=== PATIENT | male | born 1965 | race Hispanic/Latino ===

== ENCOUNTER 2016-08-05 07:45 | Emergency (ER) | payer MEDICAID ==
[2016-08-05 07:57] VITALS: BP 142/91; PULSE 78; RESP 18; TEMP 97.3; O2SAT 99; BMI 35.9
--- NOTE | 2016-08-05 09:00 | ED PDOC ---
Lower Extremity Pain/Injury Time Seen by Provider: 08/05/16 08:04 Chief Complaint (Nursing): Abnormal Skin Integrity Chief Complaint (Provider): left leg pain and swelling History Per: Patient History/Exam Limitations: no limitations Onset/Duration Of Symptoms: Days (2), Gradual Current Symptoms Are (Timing): Still Present Additional Complaint(s): 51yo male states history of psychiatric problems, presents c/o left leg pain, swelling and open wound to left 5th toe (states "rubs against my sneaker"). States legs will sometimes swell but swelling on left leg is new and out of proportion to normal symptoms. Denies fall or injury. Denies fever or hip pain. Past Medical History Reviewed: Historical Data, Nursing Documentation, Vital Signs Vital Signs: Last Vital Signs Temp 97.3 F L 08/05/16 07:57 Pulse 78 08/05/16 07:57 Resp 18 08/05/16 07:57 BP 142/91 H 08/05/16 07:57 Pulse Ox 99 08/05/16 07:57 - Medical History PMH: Anemia, Anxiety, Asthma, Bipolar Disorder, Depression, Fractures (Right arm ), Hyperthyroidism, Hypothyroidism, Personality Disorder, Post Traumatic Stress Disorder, Schizophrenia (schizo-affective) Denies: Diabetes, Hepatitis, HIV, HTN, Chronic Kidney Disease, Seizures, Sexually Transmitted Disease - Family History Family History: States: Unknown Family Hx, Hypertension (sister) - Social History Current smoker - smoking cessation education provided: No Alcohol: Occasional - Home Medications Home Medications: Ambulatory Orders Medication Instructions Recorded Multimineral/Multivitamin 1 tab PO DAILY #30 tab 07/29/16 [Therapeutic-M Tab] Cyanocobalamin [Vitamin B12 1000 1,000 mcg PO DAILY 08/10/16 mcg Tab] Albuterol HFA [Ventolin HFA 90 2 puff IH Q4H PRN #1 inhaler 08/17/16 mcg/actuation (8 g)] Divalproex [Depakote DR (*BID*)] 250 mg PO DAILY #30 ect 08/17/16 Divalproex [Depakote DR(*BID*)] 1,000 mg PO HS #60 tcp 08/17/16 Doxepin [Sinequan] 10 mg PO HS #30 cap 08/17/16 Ferrous Sulfate [Feosol] 325 mg PO BID #60 tab 08/17/16 Fluticasone/Salmeterol 250/50 1 puff IH Q12 #1 inhaler 08/17/16 [Advair Diskus 250/50] Levothyroxine [Synthroid] 75 mcg PO DAILY #30 tab 08/17/16 QUEtiapine [SEROquel] 300 mg PO HS #30 tab 08/17/16 QUEtiapine [Seroquel] 100 mg PO BID #30 tab 08/17/16 amLODIPine [Norvasc] 5 mg PO DAILY #30 tab 08/17/16 - Allergies Allergies/Adverse Reactions: Allergies Allergy/AdvReac Type Severity Reaction Status Date / Time meperidine Allergy FATIGUE Verified 08/10/16 12:53 meperidine HCl [From Demerol] Allergy ANXIETY Verified 08/10/16 12:53 Review of Systems ROS Statement: Except As Marked, All Systems Reviewed And Found Negative Constitutional: Negative for: Fever, Chills Cardiovascular: Negative for: Chest Pain, Palpitations Respiratory: Negative for: Cough, Shortness of Breath Gastrointestinal: Negative for: Nausea, Vomiting, Abdominal Pain, Diarrhea Genitourinary Male: Negative for: Frequency Musculoskeletal: Positive for: Leg Pain, Foot Pain. Negative for: Neck Pain, Shoulder Pain, Back Pain Skin: Positive for: Lesions. Negative for: Rash, Jaundice Neurological: Negative for: Weakness, Numbness, Headache, Dizziness Psych: Positive for: Anxiety. Negative for: Depression Physical Exam - Reviewed Nursing Documentation Reviewed: Yes Vital Signs Reviewed: Yes - Physical Exam Appears: Positive for: Well, Non-toxic, No Acute Distress Head Exam: Positive for: ATRAUMATIC, NORMAL INSPECTION, NORMOCEPHALIC Skin: Positive for: Normal Color, Warm, DRY Eye Exam: Positive for: EOMI, Normal appearance, PERRL ENT: Positive for: Normal ENT Inspection Neck: Positive for: Normal, Painless ROM Cardiovascular/Chest: Positive for: Regular Rate, Rhythm Respiratory: Positive for: CNT, Normal Breath Sounds Gastrointestinal/Abdominal: Positive for: Normal Exam, Bowel Sounds, Soft Back: Positive for: Normal Inspection Extremity: Positive for: Tenderness (L leg), Swelling (L leg++ edema, small abrasion L 5th toe, mild erythema to foot/ankle/lower leg. ) Neurologic/Psych: Positive for: Alert, Oriented - Laboratory Results Result Diagrams: 08/05/16 09:58 08/05/16 09:58 - ECG O2 Sat by Pulse Oximetry: 99 Pulse Ox Interpretation: Normal - Radiology X-Ray: Read By Radiologist X-Ray Interpretation: Other (neg fracture) - CT Scan/US US duplex LE Other Rad Studies (CT/US): Read By Radiologist Other Rad Interpretation: neg for DVT Medical Decision Making Medical Decision Making: Workup initiated for unilateral edema/ pain r/o DVT vs cellulitis vs occult trauma vs ischemia vs other. labs unremarkable clinically podiatry consult performed in ED, wound care provided and dressing placed. followup in pod clinic 3-5 days. Disposition - Clinical Impression Clinical Impression: Cellulitis, Leg edema, left - Patient ED Disposition Is Patient to be Admitted: No Counseled Patient/Family Regarding: Studies Performed, Diagnosis, Need For Followup, Rx Given - Disposition Referrals: Podiatry Clinic [Outside] Disposition: Routine/Home Disposition Time: 12:06 Condition: STABLE Additional Instructions: See clinic for re-evaluation as directed. Return to ER for any worse or new symptoms, fever, or any concern. Take antibiotic as directed. Instructions: Cellulitis (ED), Leg Edema (ED)
[2016-08-05 10:03] LABS: BASO # 0.1 K/uL (0.0-0.2); EOS # 0.4 K/uL (0.0-0.7); EOS % 6.7 % (0.0-4.0); HEMATOCRIT 34.3 % (35.0-51.0); LYMPH # 1.4 K/uL (1.0-4.3); LYMPH % 26.5 % (20.0-40.0); MEAN CELL VOLUME 82.3 fl (80.0-94.0); MEAN CORPUSCULAR HEMOGLOBIN 26.9 pg (27.0-31.0); MEAN CORPUSCULAR HGB CONC 32.7 g/dL (33.0-37.0); MEAN PLATELET VOLUME 7.5 fl (7.2-11.7); MONO # 0.7 K/uL (0.0-0.8); MONO % 12.9 % (0.0-10.0); NEUT # 2.9 K/uL (1.8-7.0); NEUT % 52.9 % (50.0-75.0); NRBC % 0.1 % (0.0-0.0); RED CELL DISTRIBUTION WIDTH 18.1 % (11.5-14.5); WHITE BLOOD COUNT 5.4 K/uL (4.8-10.8)
[2016-08-05 10:21] LABS: ALB/GLOB RATIO 1.1 (1.0-2.1); ALKALINE PHOSPHATASE 85 U/L (38-126); ALT/SGPT 27 U/L (21-72); AST/SGOT 33 U/L (17-59); BILIRUBIN,TOTAL 0.6 mg/dl (0.2-1.3); BLOOD UREA NITROGEN 9 mg/dl (9-20); CALCIUM 9.1 mg/dL (8.4-10.2); CARBON DIOXIDE 23 mmol/L (22-30); CHLORIDE 108 mmol/L (98-107); GFR AFRICAN-AMERICAN > 60; GLUCOSE,RANDOM 79 mg/dL (75-110); POTASSIUM 4.8 MMOL/L (3.6-5.0); SODIUM 146 mmol/l (132-148); TOTAL PROTEIN 7.2 G/DL (6.3-8.2)
[2016-08-05 10:32] LABS: RBC URINE 1 /hpf (0-3); URINE BILIRUBIN NEGATIVE (NEGATIVE); URINE BLOOD NEGATIVE (NEGATIVE); URINE COLOR STRAW (YELLOW); URINE GLUCOSE (UA) NEG (Normal); URINE KETONE NEGATIVE (NEGATIVE); URINE LEUKOCYTE ESTERASE NEG Leu/uL (Negative); URINE PROTEIN NEGATIVE (NEGATIVE); URINE UROBILINOGEN 0.2-1.0 mg/dL (0.2-1.0); WBC URINE < 1 /hpf (0-5)
--- NOTE | 2016-08-05 11:08 | US ---
HISTORY: ro DVT, edema pain . PRIORS: None. FINDINGS: 2-D, color and duplex Doppler analysis of the lower extremity venous circulation using routine protocol from the femoral veins through the popliteal veins. Venous compressibility: Normal. Flow and augmentation patterns: Normal. Visualized veins upper third of calf: Normal. Reece cyst: None. Incidental 2.2 cm left inguinal lymph node identified. Subcutaneous edema noted in calf and about ankle. IMPRESSION: No sonographic or Doppler evidence for DVT in left lower extremity. Subcutaneous edema in left calf and ankle.
[2016-08-05] MEDS ORDERED: Amoxicillin-Clav 875-125 mg Tab PO STA (11:36)
[2016-08-05] MEDS ORDERED: Amoxicillin-Clav 875-125 mg Tab PO ONE (11:41)
[2016-08-05 12:07] LABS: PARTIAL THROMBOPLASTIN TIME 26.6 SECONDS (23.3-32.5)
--- NOTE | 2016-08-05 13:20 | RAD ---
PROCEDURE: Left Foot Radiographs. HISTORY: pain swelling COMPARISON: None. FINDINGS: BONES: Normal. No fracture. JOINTS: Hallux valgus deformity. SOFT TISSUES: Normal. OTHER FINDINGS: None. IMPRESSION: No acute fracture. Hallux valgus noted. Otherwise unremarkable.
--- NOTE | 2016-08-05 13:23 | RAD ---
PROCEDURE: Left Ankle Radiographs. HISTORY: pain swelling COMPARISON: None FINDINGS: BONES: Normal. No fracture. JOINTS: Normal. No osteoarthritis. Ankle mortise maintained. Talar dome intact SOFT TISSUES: Extensive soft tissue swelling about the CT and ankle. OTHER FINDINGS: None. IMPRESSION: No fracture. Soft tissue swelling noted.
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
== END 2016-08-05 12:55 | disposition home or self-care (01) ==
LOC: H.ER 07:45
DX: M25.572 Pain in left ankle and joints of left foot (principal); R60.0 Localized edema; D64.9 Anemia, unspecified

== ENCOUNTER 2016-10-11 04:24 | Emergency (ER) | payer MEDICAID ==
[2016-10-11 04:25] VITALS: BMI 35.9
[2016-10-11 04:40] VITALS: BP 156/81; PULSE 79; RESP 16; TEMP 98.4; O2SAT 97
[2016-10-11 05:42] LABS: BASO # 0.1 K/uL (0.0-0.2); BASO % 1.4 % (0.0-2.0); EOS # 0.2 K/uL (0.0-0.7); EOS % 4.2 % (0.0-4.0); HEMATOCRIT 36.3 % (35.0-51.0); LYMPH # 1.7 K/uL (1.0-4.3); LYMPH % 29.6 % (20.0-40.0); MEAN CELL VOLUME 84.1 fl (80.0-94.0); MEAN CORPUSCULAR HEMOGLOBIN 27.4 pg (27.0-31.0); MEAN CORPUSCULAR HGB CONC 32.6 g/dL (33.0-37.0); MEAN PLATELET VOLUME 7.6 fl (7.2-11.7); MONO # 0.7 K/uL (0.0-0.8); MONO % 12.4 % (0.0-10.0); NEUT % 52.4 % (50.0-75.0); NRBC % 0.1 % (0.0-0.0); RED CELL DISTRIBUTION WIDTH 15.8 % (11.5-14.5); WHITE BLOOD COUNT 5.7 K/uL (4.8-10.8)
[2016-10-11 05:56] LABS: ALCOHOL SERUM < 10 mg/dl (0-10); BLOOD UREA NITROGEN 10 mg/dl (9-20); CALCIUM 9.2 mg/dL (8.4-10.2); CARBON DIOXIDE 27 mmol/L (22-30); CHLORIDE 105 mmol/L (98-107); GFR AFRICAN-AMERICAN > 60; GLUCOSE,RANDOM 84 mg/dL (75-110); POTASSIUM 3.9 MMOL/L (3.6-5.0); SODIUM 140 mmol/l (132-148)
--- NOTE | 2016-10-11 06:06 | ED PDOC ---
- Laboratory Results Result Diagrams: 10/11/16 05:10 - ECG O2 Sat by Pulse Oximetry: 97 (RA) Pulse Ox Interpretation: Normal Medical Decision Making Medical Decision Making: Time: 0430 Initial impression: Anxiety Initial plan: --Acetaminophen --Alcohol Serum --BMP --Drug Screen, Urine --Salicylate --Crisis Evaluation --Urinalysis 0600: Cleared by crisis for discharge Scribe Attestation: Documented by Katlyn Contreras, acting as a scribe for Nelson Andres M.D. MD Scribe Attestation: All medical record entries made by the Scribe were at my direction and personally dictated by me. I have reviewed the chart and agree that the record accurately reflects my personal performance of the history, physical exam, medical decision making, and the department course for this patient. I have also personally directed, reviewed, and agree with the discharge instructions and disposition. Disposition - Clinical Impression Clinical Impression: Anxiety - Disposition Referrals: Nessa Bills MD [Primary Care Provider] - Disposition: Routine/Home - PA / [employer] / Resident Statement / has reviewed & agrees with the documentation as recorded.
--- NOTE | 2016-10-11 06:13 | ED PDOC ---
HPI: General Adult Time Seen by Provider: 10/11/16 04:26 Chief Complaint (Nursing): Anxiety Chief Complaint (Provider): Anxiety History Per: Patient History/Exam Limitations: no limitations Onset/Duration Of Symptoms: Days Have you had recent travel within the past 21 days to any of the following countries: [place], [place], [place] or [place]?: No Severity: Mild Additional Complaint(s): 51 y/o male presenting to the ED with anxiety. Pt states that he suffers from depression as well and has ran out of medications. PT reports "hearing voices" in his head. And he also mentions that he has been suffering numbness in his right upper extremity for a week now. Past Medical History Reviewed: Historical Data, Nursing Documentation, Vital Signs Vital Signs: Last Vital Signs Temp 98.4 F 10/11/16 04:34 Pulse 79 10/11/16 04:34 Resp 16 10/11/16 04:34 BP 156/81 H 10/11/16 04:34 Pulse Ox 97 10/11/16 06:50 - Medical History PMH: Anemia, Anxiety, Asthma, Bipolar Disorder, Depression, Fractures (Right arm ), Hyperthyroidism, Hypothyroidism, Personality Disorder, Post Traumatic Stress Disorder, Schizophrenia (schizo-affective) Denies: Diabetes, Hepatitis, HIV, HTN, Chronic Kidney Disease, Seizures, Sexually Transmitted Disease - Family History Family History: States: Unknown Family Hx, Hypertension (sister) - Home Medications Home Medications: Ambulatory Orders Medication Instructions Recorded Multimineral/Multivitamin 1 tab PO DAILY #30 tab 07/29/16 [Therapeutic-M Tab] Cyanocobalamin [Vitamin B12 1000 1,000 mcg PO DAILY 08/10/16 mcg Tab] Albuterol HFA [Ventolin HFA 90 2 puff IH Q4H PRN #1 inhaler 08/17/16 mcg/actuation (8 g)] Divalproex [Depakote DR (*BID*)] 250 mg PO DAILY #30 ect 08/17/16 Divalproex [Depakote DR(*BID*)] 1,000 mg PO HS #60 tcp 08/17/16 Doxepin [Sinequan] 10 mg PO HS #30 cap 08/17/16 Ferrous Sulfate [Feosol] 325 mg PO BID #60 tab 08/17/16 Fluticasone/Salmeterol 250/50 1 puff IH Q12 #1 inhaler 08/17/16 [Advair Diskus 250/50] Levothyroxine [Synthroid] 75 mcg PO DAILY #30 tab 08/17/16 QUEtiapine [SEROquel] 300 mg PO HS #30 tab 08/17/16 QUEtiapine [Seroquel] 100 mg PO BID #30 tab 08/17/16 amLODIPine [Norvasc] 5 mg PO DAILY #30 tab 08/17/16 - Allergies Allergies/Adverse Reactions: Allergies Allergy/AdvReac Type Severity Reaction Status Date / Time meperidine Allergy FATIGUE Verified 08/10/16 12:53 meperidine HCl [From Demerol] Allergy ANXIETY Verified 08/10/16 12:53 Review of Systems ROS Statement: Except As Marked, All Systems Reviewed And Found Negative Constitutional: Negative for: Fever, Chills, Weakness Cardiovascular: Negative for: Chest Pain, Palpitations Respiratory: Negative for: Shortness of Breath Gastrointestinal: Negative for: Nausea, Vomiting, Diarrhea Musculoskeletal: Positive for: Other ((+)right upper extremity numbness) Psych: Positive for: Anxiety, Depression Physical Exam - Reviewed Nursing Documentation Reviewed: Yes Vital Signs Reviewed: Yes - Physical Exam Appears: Positive for: Non-toxic, No Acute Distress Head Exam: Positive for: ATRAUMATIC, NORMAL INSPECTION, NORMOCEPHALIC Skin: Positive for: Normal Color, Warm Eye Exam: Positive for: Normal appearance, EOMI, PERRL Neck: Positive for: Normal, Painless ROM, Supple Cardiovascular/Chest: Positive for: Regular Rate, Rhythm. Negative for: Murmur Respiratory: Positive for: Normal Breath Sounds. Negative for: Respiratory Distress Extremity: Positive for: Normal ROM Neurologic/Psych: Positive for: Alert, Oriented. Negative for: Motor/Sensory Deficits - Laboratory Results Result Diagrams: 10/11/16 05:10 10/11/16 05:10 - ECG O2 Sat by Pulse Oximetry: 97 (RA) Pulse Ox Interpretation: Normal Medical Decision Making Medical Decision Making: Time: 043 Initial impression: Anxiety Initial plan: --Acetaminophen --Alcohol Serum --BMP --Drug Screen, Urine --Salicylate --Crisis Evaluation --Urinalysis 0600: Cleared by crisis for discharge Scribe Attestation: Documented by Katlyn Contreras, acting as a scribe for Nelsno Andres M.D. MD Scribe Attestation: All medical record entries made by the Scribe were at my direction and personally dictated by me. I have reviewed the chart and agree that the record accurately reflects my personal performance of the history, physical exam, medical decision making, and the department course for this patient. I have also personally directed, reviewed, and agree with the discharge instructions and disposition. Disposition - Clinical Impression Clinical Impression: Anxiety - Patient ED Disposition Is Patient to be Admitted: No - Disposition Referrals: Nessa Bills MD [Primary Care Provider] - Disposition: Routine/Home Disposition Time: 06:30 Condition: STABLE Instructions: Anxiety (ED), Suicide Prevention for Adults (ED)
[2016-10-11 07:07] LABS: RBC URINE 2 /hpf (0-3); URINE BILIRUBIN NEGATIVE (NEGATIVE); URINE BLOOD NEGATIVE (NEGATIVE); URINE COLOR YELLOW (YELLOW); URINE GLUCOSE (UA) NEG (Normal); URINE KETONE NEGATIVE (NEGATIVE); URINE LEUKOCYTE ESTERASE NEG Leu/uL (Negative); URINE PROTEIN NEGATIVE (NEGATIVE); URINE UROBILINOGEN 0.2-1.0 mg/dL (0.2-1.0)
== END 2016-10-11 07:14 | disposition home or self-care (01) ==
LOC: H.ER 04:24
DX: F41.9 Anxiety disorder, unspecified (principal); E03.9 Hypothyroidism, unspecified; E05.90 Thyrotoxicosis, unspecified without thyrotoxic crisis or storm; F20.9 Schizophrenia, unspecified; F31.9 Bipolar disorder, unspecified; F43.10 Post-traumatic stress disorder, unspecified; J45.909 Unspecified asthma, uncomplicated

== ENCOUNTER 2016-10-26 16:18 | Inpatient (IN) | payer MEDICAID ==
[2016-10-26 16:18] VITALS: BMI 35.9
[2016-10-26 17:45] LABS: BASO # 0.1 K/uL (0.0-0.2); BASO % 0.9 % (0.0-2.0); EOS # 0.2 K/uL (0.0-0.7); EOS % 2.8 % (0.0-4.0); HEMATOCRIT 36.5 % (35.0-51.0); LYMPH # 1.6 K/uL (1.0-4.3); LYMPH % 26.1 % (20.0-40.0); MEAN CELL VOLUME 84.6 fl (80.0-94.0); MEAN CORPUSCULAR HEMOGLOBIN 27.2 pg (27.0-31.0); MEAN CORPUSCULAR HGB CONC 32.1 g/dL (33.0-37.0); MEAN PLATELET VOLUME 7.5 fl (7.2-11.7); MONO # 0.6 K/uL (0.0-0.8); MONO % 9.3 % (0.0-10.0); NEUT # 3.6 K/uL (1.8-7.0); NEUT % 60.9 % (50.0-75.0); RED CELL DISTRIBUTION WIDTH 15.7 % (11.5-14.5)
--- NOTE | 2016-10-26 17:56 | ED PDOC ---
HPI: Psych/Substance Abuse Time Seen by Provider: 10/26/16 16:43 Chief Complaint (Nursing): Psychiatric Evaluation Chief Complaint (Provider): Psychiatric Evaluation History Per: Patient History/Exam Limitations: no limitations Onset/Duration Of Symptoms: Days (worsen in the last 2 weeks) Current Symptoms Are (Timing): Still Present Additional Complaint(s): Mau Marrufo is a 51 year old male with a previous history of depression, who presents to the emergency department for a psychiatric evaluation for depression associated with suicidal ideation that has worsen in the last 2 weeks. Denies any physical complaints. 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 Stated he "wanted to go the park to hang himself". He was admitted 8 months ago at [facility] for similiar symptoms. PMD: none Past Medical History Reviewed: Historical Data, Nursing Documentation, Vital Signs Vital Signs: Last Vital Signs Temp 98.3 F 10/26/16 16:19 Pulse 77 10/26/16 16:19 Resp 18 10/26/16 16:19 BP 146/88 10/26/16 16:19 Pulse Ox 100 10/26/16 16:19 - Medical History PMH: Anemia, Anxiety, Asthma, Bipolar Disorder, Depression, Fractures (Right arm ), HTN, Hyperthyroidism, Hypothyroidism, Personality Disorder, Post Traumatic Stress Disorder, Schizophrenia (schizo-affective) Denies: Diabetes, Hepatitis, HIV, Chronic Kidney Disease, Seizures, Sexually Transmitted Disease - Surgical History Other surgeries: Gastric Bypass - Family History Family History: States: Unknown Family Hx, Hypertension (sister) - Living Arrangements Living Arrangements: Other (senior living) - Social History Ex-Smoker (has not smoked in the last 12 months): No Alcohol: Occasional (last drink was 6 weeks ago) Drugs: Denies - Home Medications Home Medications: Ambulatory Orders Medication Instructions Recorded Multimineral/Multivitamin 1 tab PO DAILY #30 tab 07/29/16 [Therapeutic-M Tab] Cyanocobalamin [Vitamin B12 1000 1,000 mcg PO DAILY 08/10/16 mcg Tab] Albuterol HFA [Ventolin HFA 90 2 puff IH Q4H PRN #1 inhaler 08/17/16 mcg/actuation (8 g)] Divalproex [Depakote DR (*BID*)] 250 mg PO DAILY #30 ect 08/17/16 Divalproex [Depakote DR(*BID*)] 1,000 mg PO HS #60 tcp 08/17/16 Doxepin [Sinequan] 10 mg PO HS #30 cap 08/17/16 Ferrous Sulfate [Feosol] 325 mg PO BID #60 tab 08/17/16 Fluticasone/Salmeterol 250/50 1 puff IH Q12 #1 inhaler 08/17/16 [Advair Diskus 250/50] Levothyroxine [Synthroid] 75 mcg PO DAILY #30 tab 08/17/16 QUEtiapine [SEROquel] 300 mg PO HS #30 tab 08/17/16 QUEtiapine [Seroquel] 100 mg PO BID #30 tab 08/17/16 amLODIPine [Norvasc] 5 mg PO DAILY #30 tab 08/17/16 - Allergies Allergies/Adverse Reactions: Allergies Allergy/AdvReac Type Severity Reaction Status Date / Time meperidine Allergy FATIGUE Verified 08/10/16 12:53 meperidine HCl [From Demerol] Allergy ANXIETY Verified 08/10/16 12:53 Review of Systems ROS Statement: Except As Marked, All Systems Reviewed And Found Negative Constitutional: Negative for: Fever, Chills, Other (physical complaints) Psych: Positive for: Depression, Suicidal ideation Physical Exam - Reviewed Nursing Documentation Reviewed: Yes Vital Signs Reviewed: Yes - Physical Exam Appears: Positive for: Well, Non-toxic, No Acute Distress Head Exam: Positive for: ATRAUMATIC, NORMAL INSPECTION, NORMOCEPHALIC Skin: Positive for: Normal Color, Warm, DRY Neck: Positive for: Normal, Painless ROM, Supple. Negative for: Limited ROM Cardiovascular/Chest: Positive for: Regular Rate, Rhythm Respiratory: Positive for: Normal Breath Sounds. Negative for: Respiratory Distress Gastrointestinal/Abdominal: Positive for: Normal Exam, Bowel Sounds, Soft. Negative for: Tenderness Extremity: Positive for: Normal ROM, Pedal Edema (trace edema bilaterally) Neurologic/Psych: Positive for: Alert (cooperative), Oriented - Laboratory Results Result Diagrams: 10/26/16 17:35 10/26/16 17:35 - ECG O2 Sat by Pulse Oximetry: 100 (RA) Pulse Ox Interpretation: Normal Medical Decision Making Medical Decision Making: Initial Impression: Depression associated with suicidal ideation Initial Plan: * Acetaminophen * Alcohol serum * Labs * Drug screen * Salicylate * Crisis eval * urinalysis * Reevaluate ~ Scribe Attestation: Documented by Leatha Hare, acting as a scribe for Emily Cotto MD. Provider Scribe Attestation: All medical record entries made by the Scribe were at my direction and personally dictated by me. I have reviewed the chart and agree that the record accurately reflects my personal performance of the history, physical exam, medical decision making, and the department course for this patient. I have also personally directed, reviewed, and agree with the discharge instructions and disposition. Disposition - Clinical Impression Clinical Impression: Suicidal ideation, Depression - Patient ED Disposition Is Patient to be Admitted: Yes Doctor Will See Patient In The: Hospital - Disposition Disposition: Transfer of Care Disposition Time: 18:30 Condition: GUARDED - Pt Status Changed To: Hospital Disposition Of: Inpatient - Admit Certification Admit to Inpatient:: After my assessment, the patient will require hospitalization for at least two midnights. This is because of the severity of symptoms shown, intensity of services needed, and/or the medical risk in this patient being treated as an outpatient. - POA Present On Arrival: None
[2016-10-26 18:08] LABS: ALCOHOL SERUM < 10 mg/dl (0-10); BLOOD UREA NITROGEN 13 mg/dl (9-20); CALCIUM 9.2 mg/dL (8.4-10.2); CARBON DIOXIDE 23 mmol/L (22-30); CHLORIDE 105 mmol/L (98-107); GFR AFRICAN-AMERICAN > 60; GLUCOSE,RANDOM 137 mg/dL (75-110); SODIUM 141 mmol/l (132-148)
[2016-10-26 18:41] LABS: RBC URINE 1 /hpf (0-3); URINE BACTERIA RARE (<OCC); URINE BILIRUBIN NEGATIVE (NEGATIVE); URINE BLOOD NEGATIVE (NEGATIVE); URINE COLOR YELLOW (YELLOW); URINE GLUCOSE (UA) NEG (Normal); URINE KETONE TRACE mg/dL (NEGATIVE); URINE LEUKOCYTE ESTERASE NEG Leu/uL (Negative); URINE PROTEIN 30 mg/dL (NEGATIVE); URINE UROBILINOGEN 0.2-1.0 mg/dL (0.2-1.0); WBC URINE 2 /hpf (0-5)
[2016-10-26 18:42] LABS: URINE CALCIUM OXALATE CRYSTALS FEW /hpf (<OCC)
[2016-10-26] MEDS ORDERED: DiphenhydrAMINE 50 mg/ml Inj IM PRN (23:48)
[2016-10-26] MEDS ORDERED: Magnesium Hydroxide Susp 30 ml UD PO PRN (23:48)
[2016-10-26] MEDS ORDERED: Alum-Mag Hydrox-Simethicone Susp (30 mL) PO PRN (23:48)
[2016-10-27] MEDS: Levothyroxine 75 MCG TAB PO SCH (06:32)
[2016-10-27 09:25] LABS: T4 5.93 ug/dl (5.5-11.0)
[2016-10-27 09:39] LABS: THYROID STIMULATING HORMONE 1.56 mIU/ML (0.46-4.68)
--- NOTE | 2016-10-27 12:28 | RAD ---
HISTORY: for medical clearance COMPARISON: Chest x-ray performed 08/10/16 TECHNIQUE: Chest, one view. FINDINGS: Examination limited by habitus and hypoinflation. The patient's chin obscures evaluation of the lung apices. LUNGS: No focal consolidation. Please note that chest x-ray has limited sensitivity for the detection of pulmonary masses. PLEURA: No significant pleural effusion identified. No definite pneumothorax . CARDIOVASCULAR: Heart size appears within normal limits. OSSEOUS STRUCTURES: Degenerative changes. VISUALIZED UPPER ABDOMEN: Unremarkable. OTHER FINDINGS: None. IMPRESSION: No focal consolidation, significant pleural effusion, or definite pneumothorax identified.
--- NOTE | 2016-10-27 13:17 | PCM.PSYCH ---
Initial Psychiatric Evaluation - Initial Psychiatric Evaluation Type of Admission: Voluntary Legal Status: Capacity Chief Complaint (in patient's own words): i have been depressed Patient's Reaction to Hospitalization: cooperative History of Present Illness and Precipitating Events: 51 yo male, living in [facility], attends an adult day program. he states he is going to [facility] for his medications and he is not on a high enough dose of his medications. states he's been struggling with worsening depression. he reports he has poor concentration, gets easily frustrated, is sad, trouble falling asleep. he reports he became acutely suicidal when he did not get a job he applied for. pt reports he feels hopeless because he is trying so hard to find work. he had thoughts to overdose, but now he feels that he will be safe in the hospital. he denies any psychotic symptoms. he denies manic symptoms. states he has been sober for 3 months. Current Medications: Active Medications Generic Name Dose Route Start Last Admin Trade Name Freq PRN Reason Stop Dose Admin Acetaminophen 650 mg 10/26/16 23:48 10/27/16 12:49 Tylenol 325mg Tab PO 650 mg Q4 PRN Administration Pain, moderate (4-7) Al Hydrox/Mg Hydrox/Simethicone 30 ml 10/26/16 23:48 Maalox Plus 30 Ml PO Q4 PRN Dyspepsia Albuterol 2 puff 10/27/16 00:06 Ventolin Hfa 90 Mcg/Actuation (8 G) IH Q4H PRN Shortness of Breath Amlodipine Besylate 5 mg 10/27/16 09:00 10/27/16 12:44 Norvasc PO 5 mg DAILY DOROTEO Administration Diphenhydramine HCl 50 mg 10/26/16 23:48 Benadryl IM Q6 PRN Extrapyramidal S/S Unable PO Diphenhydramine HCl 50 mg 10/26/16 23:59 Benadryl PO HS PRN Sleep Ferrous Sulfate 325 mg 10/27/16 09:00 10/27/16 12:44 Feosol PO 325 mg DAILY DOROTEO Administration Haloperidol 5 mg 10/26/16 23:48 Haldol PO Q4 PRN Agitation Haloperidol Lactate 5 mg 10/26/16 23:48 Haldol IM Q4 PRN Agitation, Unable to Take PO Levothyroxine Sodium 75 mcg 10/27/16 06:30 10/27/16 06:32 Synthroid PO 75 mcg DAILY@0630 DOROTEO Administration Lorazepam 2 mg 10/26/16 23:48 Ativan IM Q4 PRN Anxiety/Agitation,Unable PO Lorazepam 2 mg 10/26/16 23:48 Ativan PO Q4 PRN Anxiety/Agitation Magnesium Hydroxide 30 ml 10/26/16 23:48 Milk Of Magnesia PO HS PRN Constipation Multivitamins/Minerals 1 tab 10/27/16 09:00 Therapeutic-M Tab PO DAILY DOROTEO Fluticasone/Salmeterol 1 puff 10/27/16 09:00 Advair Diskus 250/50 IH Q12 DOROTEO Past Psychiatric History - Past Psychiatric History Previous Treatment History: Inpatient Prior Professional Help: multiple previous admissions History of Abuse: history of childhood trauma History of ETOH/Drug Use: history of alcohol dependence and other substance use issues. denies cigarette use. History of Family Illness: substance abuse issues in family. sister recently left state to move to [place]. Pertinent Medical Hx (Current Medical&Sleep Prob, Allergies): Allergies Allergy/AdvReac Type Severity Reaction Status Date / Time meperidine Allergy FATIGUE Verified 08/10/16 12:53 meperidine HCl [From Demerol] Allergy ANXIETY Verified 08/10/16 12:53 Multimineral/Multivitamin [Therapeutic-M Tab] 1 tab PO DAILY #30 tab 07/29/16 Albuterol HFA [Ventolin HFA 90 mcg/actuation (8 g)] 2 puff IH Q4H PRN #1 inhaler 08/17/16 Doxepin [Sinequan] 10 mg PO HS #30 cap 08/17/16 Fluticasone/Salmeterol 250/50 [Advair Diskus 250/50] 1 puff IH Q12 #1 inhaler Levothyroxine [Synthroid] 75 mcg PO DAILY #30 tab 08/17/16 QUEtiapine [SEROquel] 300 mg PO HS #30 tab 08/17/16 amLODIPine [Norvasc] 5 mg PO DAILY #30 tab 08/17/16 Divalproex [Depakote ER] 1,000 mg PO HS 10/26/16 Divalproex [Depakote ER] 250 mg PO DAILY 10/26/16 Ferrous Sulfate [Feosol] 325 mg PO DAILY 10/26/16 history of gastric bipass Review of Systems - Psychiatric Psychiatric: As Per HPI Mental Status Examination - Personal Presentation Personal Presentation: Looks stated age, Obese - Affect Affect: Constricted, Depressed - Motor Activity Motor Activity: Calm - Reliability in Providing Information Reliability in Providing Information: Fair - Speech Speech: Organized - Mood Mood: Depressed - Formal Thought Process Formal Thought Process: No Impairment - Obsessions/Compulsions Obsessions: No Compulsions: No - Cognitive Functions Orientation: Person, Place, Situation, Time Sensorium: Alert Attention/Concentration: Attentive Abstract Thinking: [place] Estimate of Intelligence: Average Judgement: Intact, as evidence by: Insight regarding need for hospitalization Memory: Recent intact, as evidence by: Ability to recall events of the day, Remote intact, as evidenced by: Abilit to recall sig. life events - Risk Risk: Suicidal (denies current plan or intent) - Strength & Assets Inventory Strength & Assets Inventory: Intelligence - Limitations Limitations: Other (lack of housing, lack of supports) DSM 5 DX - DSM 5 DSM 5 Diagnosis: bipolar disorder, depressed alcohol dependence in early remission borderline personality disorder - Recommended/Plan of Treatment Treatment Recommendations and Plan of Treatment: admit to [facility] for safety and observation gather collateral information provide supportive therapy adjust medications- restart previous meds disposition planning hospitalist consult Projected ELOS: 3-5 days Prognosis: fair - Smoking Cessation Smoking Cessation Initiated: No Reason for not providing: declines
[2016-10-27] MEDS: Multivitamin With Minerals Tab PO SCH (16:53)
[2016-10-27] MEDS: Divalproex 250 mg ER (ONCE DAILY formulation) PO SCH (16:53)
[2016-10-27] MEDS: Fluticasone-Salmeterol 250-50mcg Diskus IH SCH ×2 (16:54→20:48)
[2016-10-27] MEDS: Albuterol HFA 90 mcg/actuation (8 g) IH PRN (21:46)
[2016-10-27] MEDS: Divalproex 500 mg ER (ONCE DAILY formulation) PO SCH (21:48)
--- NOTE | 2016-10-27 23:57 | CARD ---
APPROVED REPORT EKG Measurement Heart [id number] <Conclusion> Normal sinus rhythm RSR' or QR pattern in V1 suggests right ventricular conduction delay Borderline ECG
[2016-10-28] MEDS: Levothyroxine 75 MCG TAB PO SCH (05:55)
[2016-10-28] MEDS: Divalproex 250 mg ER (ONCE DAILY formulation) PO SCH (09:38)
[2016-10-28] MEDS: Fluticasone-Salmeterol 250-50mcg Diskus IH SCH ×2 (09:38→21:23)
[2016-10-28] MEDS: Albuterol HFA 90 mcg/actuation (8 g) IH PRN (09:40)
[2016-10-28] MEDS: Multivitamin With Minerals Tab PO SCH (09:42)
--- NOTE | 2016-10-28 12:03 | PCM.PYCHPN ---
Psychiatric Progress Note - Psychiatric Progress Note Patient seen today, length of contact: in treatment team Patient Chief Complaint: can i go in time to go to my program monday Problems Identified/Issues Discussed: pt tolerating reintroduction of medications. came to treatment team and states hes starting to feel better. wants to go back to his adult day program prior to his md appointment monday. he is visible in the milieu and interacting with peers. Medical Problems: s/p gastic bipass, obesity Medication Change: No Medical Record Reviewed: Yes Mental Status Examination - Cognitive Function Orientation: Person, Place, Situation, Time Memory: Intact Attention: WNL Concentration: WNL Association: [facility] Fund of Knowledge: WN - Mood Mood: Depressed - Affect Affect: Constricted, Depressed - Speech Speech: Appropriate - Formal Thought Process Formal Thought Process: No Impairment Psychotic Thoughts and Behaviors: denies current a/v hallucinations - Suicidal Ideation Suicidal Ideation: No Plan: denies current suicidal thoughts - Homicidal Ideation Homicidal Ideation: No Goal/Treatment Plan - Goal/Treatment Plan Need for Continued Stay: Remain at risks for inpatient hospitalization, Severe functional impairment Progress Toward Problem(s) and Goals/Treatment Plan: biipolar disorder alcohol dependence early remission continue current treatment check depakote level on 10/30 discharge monday am- will ep[facility]cribe meds to [facility] in [place] Estimated Date of D/C: 10/31/16
[2016-10-28 17:15] VITALS: O2SAT 20
[2016-10-28] MEDS: Divalproex 500 mg ER (ONCE DAILY formulation) PO SCH (21:23)
[2016-10-29] MEDS: Levothyroxine 75 MCG TAB PO SCH (07:08)
[2016-10-29] MEDS: Fluticasone-Salmeterol 250-50mcg Diskus IH SCH (09:30)
[2016-10-29] MEDS: Divalproex 250 mg ER (ONCE DAILY formulation) PO SCH (09:31)
[2016-10-29] MEDS: Multivitamin With Minerals Tab PO SCH (09:32)
--- NOTE | 2016-10-29 11:14 | PCM.PYCHPN ---
Psychiatric Progress Note - Psychiatric Progress Note Patient seen today, length of contact: Patient evaluated, case discussed with staff, chart reviewed Patient Chief Complaint: "I'm starting to feel better" Problems Identified/Issues Discussed: Patient reports that his mood is starting to improve. He denies acute desire to harm himself or others. No acute psychotic symptoms. He is goal-oriented and more hopeful for the future. Medication Change: No Medical Record Reviewed: Yes Mental Status Examination - Cognitive Function Orientation: Person, Place, Situation, Time Memory: Intact Attention: WNL Concentration: WNL Association: WN Fund of Knowledge: [facility] Decription of patient's judgement and insights: Fair I/J - Mood Mood: Depressed - Affect Affect: Constricted, Depressed - Speech Speech: Appropriate - Formal Thought Process Formal Thought Process: No Impairment Psychotic Thoughts and Behaviors: NO AH/VH/paranoia - Suicidal Ideation Suicidal Ideation: No - Homicidal Ideation Homicidal Ideation: No Goal/Treatment Plan - Goal/Treatment Plan Need for Continued Stay: Remain at risks for inpatient hospitalization, Severe functional impairment Progress Toward Problem(s) and Goals/Treatment Plan: Bipolar disorder, Alcohol dependence early remission Continue current treatment Check depakote level on 10/30 Discharge monday am Individual and group therapy Estimated Date of D/C: 10/31/16
[2016-10-29] MEDS: Divalproex 500 mg ER (ONCE DAILY formulation) PO SCH (21:39)
--- NOTE | 2016-10-30 11:00 | PCM.PYCHPN ---
Psychiatric Progress Note - Psychiatric Progress Note Patient seen today, length of contact: Patient evaluated, case discussed with staff, chart reviewed Patient Chief Complaint: "I'm feeling better" Problems Identified/Issues Discussed: Patient reports that his mood is starting to improve. He denies acute desire to harm himself or others. No acute psychotic symptoms. He is goal-oriented and more hopeful for the future. Medication Change: No Medical Record Reviewed: Yes Mental Status Examination - Cognitive Function Orientation: Person, Place, Situation, Time Memory: Intact Attention: WNL Concentration: WNL Association: WN Fund of Knowledge: [facility] Decription of patient's judgement and insights: Fair I/J - Mood Mood: Depressed - Affect Affect: Constricted, Depressed - Speech Speech: Appropriate - Formal Thought Process Formal Thought Process: No Impairment Psychotic Thoughts and Behaviors: NO AH/VH/paranoia - Suicidal Ideation Suicidal Ideation: No - Homicidal Ideation Homicidal Ideation: No Goal/Treatment Plan - Goal/Treatment Plan Need for Continued Stay: Remain at risks for inpatient hospitalization, Severe functional impairment Progress Toward Problem(s) and Goals/Treatment Plan: Bipolar disorder, Alcohol dependence early remission Continue current treatment Check depakote level on 10/30 Discharge monday am Individual and group therapy Estimated Date of D/C: 10/31/16
--- NOTE | 2016-10-30 11:03 | PCM.PYCHPN ---
Psychiatric Progress Note - Psychiatric Progress Note Patient seen today, length of contact: Patient evaluated, case discussed with staff, chart reviewed Patient Chief Complaint: "I'm feeling better" Problems Identified/Issues Discussed: Patient reports that his mood continues to improve. He denies acute desire to harm himself or others. No acute psychotic symptoms. He is goal-oriented and looking forward to being discharged. Medication Change: No Medical Record Reviewed: Yes Mental Status Examination - Cognitive Function Orientation: Person, Place, Situation, Time Memory: Intact Attention: WNL Concentration: WNL Association: WNL Fund of Knowledge: [facility] Decription of patient's judgement and insights: Fair I/J - Mood Mood: Depressed - Affect Affect: Constricted - Speech Speech: Appropriate - Formal Thought Process Formal Thought Process: No Impairment Psychotic Thoughts and Behaviors: NO AH/VH/paranoia - Suicidal Ideation Suicidal Ideation: No - Homicidal Ideation Homicidal Ideation: No Goal/Treatment Plan - Goal/Treatment Plan Need for Continued Stay: Remain at risks for inpatient hospitalization, Severe depression anxiety Progress Toward Problem(s) and Goals/Treatment Plan: Bipolar disorder, Alcohol dependence early remission Continue current treatment Check depakote level on 10/31 Discharge monday am Individual and group therapy Estimated Date of D/C: 10/31/16
[2016-10-30] MEDS: Levothyroxine 75 MCG TAB PO SCH (12:31)
[2016-10-30] MEDS: Multivitamin With Minerals Tab PO SCH (12:32)
[2016-10-30] MEDS: Divalproex 250 mg ER (ONCE DAILY formulation) PO SCH (12:32)
[2016-10-30] MEDS: Fluticasone-Salmeterol 250-50mcg Diskus IH SCH (12:33)
[2016-10-30 18:07] VITALS: RESP 18
[2016-10-30] MEDS: Divalproex 500 mg ER (ONCE DAILY formulation) PO SCH (21:26)
[2016-10-31] MEDS: Fluticasone-Salmeterol 250-50mcg Diskus IH SCH ×2 (04:35→08:34)
[2016-10-31] MEDS: Levothyroxine 75 MCG TAB PO SCH (06:24)
[2016-10-31] MEDS: Multivitamin With Minerals Tab PO SCH (08:32)
[2016-10-31] MEDS: Divalproex 250 mg ER (ONCE DAILY formulation) PO SCH (08:32)
[2016-10-31 08:34] VITALS: BP 134/94
--- NOTE | 2016-10-31 08:57 | PCM.PYCHDC ---
Mental Status Examination - Mental Status Examination Orientation: Person, Place, Situation, Time Memory: Intact Mood: Anxious Affect: Broad Speech: Appropriate Attention: WNL Concentration: WNL Association: WNL Fund of Knowledge: WNL Formal Thought Process: No Impairment Description of patient's judgement and insight: fair Psychotic Thoughts and Behaviors: denies current a/v hallucinations Suicidal Ideation: No Current Homicidal Ideation?: No Plan: pt denies any suicidal or homicidal thoughts/plans or intent Discharge Summary - Discharge Note Reason for Hospitalization: expressed suicidal thoughts in context of being off full dose of medications and being rejected for a job Psychiatric History (includes Medical, Family, Personal Hx): history of bipolar disorder, multiple hospitalizations Laboratory Data: Abnormal Lab Results 10/31/16 06:10 Valproic Acid 42.0 L Consultations:: List each consultation separately and include: 1. Reason for request. 2. Findings. 3. Follow-up Consultations: seen by the hospitalist Summary of Hospital Course include:: 1. Description of specific treatment plan utilized for patients during their course of treatmen. 2. Summarize the time- course for resolution of acute symptoms and/or regressed behaviors. 3. Describe issues identified and worked on during hospitalization. 4. Describe medication utilized. 5. Describe medical problems identified and treated. 6. Reassessment of suicide risk Summary of Hospital Course: 51 yo male, living in [facility], attends an adult day program. he states he is going to [facility] for his medications and he is not on a high enough dose of his medications. states he's been struggling with worsening depression. he reports he has poor concentration, gets easily frustrated, is sad, trouble falling asleep. he reports he became acutely suicidal when he did not get a job he applied for. pt reports he feels hopeless because he is trying so hard to find work. he had thoughts to overdose, but now he feels that he will be safe in the hospital. he denies any psychotic symptoms. he denies manic symptoms. states he has been sober for 3 months. hospital course admitted to [facility] and oriented to the unit. seen by the medical sales. seen by the treatment team and restarted on his home medications. reported having a psychiatry appointment on 10/31 and that he wanted to restart his adult day program. he was cooperative on the unit and social with peers. at the time of discharge he was goal directed and future oriented. he was denying any suicidal or homicidal thoughts. he was denying any medication side effects. - Final Diagnosis (DSM 5) Condition upon Discharge: GUARDED DSM 5: bipolar disorder alcohol dependence early remission Disposition: HOME/ ROUTINE Follow-up Treatment Plan: take medications are prescribed do not use alcohol, tobacco or other illicit substances call 911 if any suicidal or homicidal thoughts see your primary care doctor as needed follow up with your aftercare appointments Prescriptions/Medication Reconciliation: amLODIPine [Norvasc] 5 mg PO DAILY #30 tab Divalproex [Depakote ER] 1,500 mg PO HS #45 ter Doxepin [Sinequan] 10 mg PO HS #30 cap Ferrous Sulfate [Feosol] 325 mg PO DAILY #30 tab Fluticasone/Salmeterol 250/50 [Advair Diskus 250/50] 1 puff IH Q12 #1 inhaler Levothyroxine [Synthroid] 75 mcg PO DAILY #30 tab Multimineral/Multivitamin [Therapeutic-M Tab] 1 tab PO DAILY #30 tab QUEtiapine [SEROquel] 300 mg PO HS #30 tab - Smoking Cessation Smoking Cessation Medication prescribed: No Reason for not providing: declines - Antipsychotic Medications Pt discharged on 2 or more routine antipsychotic medications: No
[2016-10-31 09:31] VITALS: PULSE 84; TEMP 96.9
== END 2016-10-31 09:33 | disposition home or self-care (01) | DRG 430 ==
LOC: H.ER 16:18 → H.ERHOLD 18:34 → H.PSYCH 23:46
PROVIDERS: ADMIT Psychiatry & Neurology Psychiatry; ATTEND Psychiatry & Neurology Psychiatry
PROC: GZ51ZZZ Individual Psychotherapy, Behavioral (ICD-10-PCS; 2016-10-26)
PROC: GZHZZZZ Group Psychotherapy (ICD-10-PCS; principal; 2016-10-30)
DX: F31.9 Bipolar disorder, unspecified (principal); R45.851 Suicidal ideations; F10.21 Alcohol dependence, in remission; E66.9 Obesity, unspecified; F60.3 Borderline personality disorder; Z98.84 Bariatric surgery status; F17.210 Nicotine dependence, cigarettes, uncomplicated

== ENCOUNTER 2016-12-13 21:31 | Inpatient (IN) | payer MEDICAID ==
[2016-12-13 21:31] VITALS: BMI 35.9
--- NOTE | 2016-12-13 22:46 | ED PDOC ---
HPI: Psych/Substance Abuse Additional Complaint(s): Pt BIBA with c/o taking 75 tabs of Seroquel with alcohol at 6 PM today. Pt denies this to provider but states he did take Seroquel to RN. <Claire Blackwell - Last Filed: 12/13/16 22:44> <Horace Martínez - Last Filed: 12/14/16 00:28> Time Seen by Provider: 12/13/16 21:40 Chief Complaint (Nursing): Psychiatric Evaluation Past Medical History Reviewed: Nursing Documentation, Vital Signs Vital Signs: Last Vital Signs Temp 98.8 F 12/13/16 21:33 Pulse 113 H 12/13/16 21:33 Resp 16 12/13/16 21:33 BP 109/58 L 12/13/16 21:33 Pulse Ox 92 L 12/13/16 21:33 - Medical History PMH: Anemia, Anxiety, Asthma, Bipolar Disorder, Depression, Fractures (Right arm ), HTN, Hyperthyroidism, Hypothyroidism, Personality Disorder, Post Traumatic Stress Disorder, Schizophrenia (schizo-affective) Denies: Diabetes, Hepatitis, HIV, Chronic Kidney Disease, Seizures, Sexually Transmitted Disease - Family History Family History: States: Unknown Family Hx, Hypertension (sister) <Claire Blackwell - Last Filed: 12/13/16 22:44> Vital Signs: Last Vital Signs Temp 98.8 F 12/13/16 21:33 Pulse 113 H 12/13/16 21:33 Resp 16 12/13/16 21:33 BP 109/58 L 12/13/16 21:33 Pulse Ox 92 L 12/13/16 22:53 <Horaec Martínez - Last Filed: 12/14/16 00:28> - Home Medications Home Medications: Ambulatory Orders Medication Instructions Recorded Albuterol HFA [Ventolin HFA 90 2 puff IH Q4H PRN inhaler 10/31/16 mcg/actuation (8 g)] Divalproex [Depakote ER] 1,500 mg PO HS #45 ter 10/31/16 Doxepin [Sinequan] 10 mg PO HS #30 cap 10/31/16 Ferrous Sulfate [Feosol] 325 mg PO DAILY #30 tab 10/31/16 Fluticasone/Salmeterol 250/50 1 puff IH Q12 #1 inhaler 10/31/16 [Advair Diskus 250/50] Levothyroxine [Synthroid] 75 mcg PO DAILY #30 tab 10/31/16 Multimineral/Multivitamin 1 tab PO DAILY #30 tab 10/31/16 [Therapeutic-M Tab] QUEtiapine [SEROquel] 300 mg PO HS #30 tab 10/31/16 amLODIPine [Norvasc] 5 mg PO DAILY #30 tab 10/31/16 - Allergies Allergies/Adverse Reactions: Allergies Allergy/AdvReac Type Severity Reaction Status Date / Time meperidine Allergy FATIGUE Verified 08/10/16 12:53 meperidine HCl [From Demerol] Allergy ANXIETY Verified 08/10/16 12:53 Review of Systems Review Of Systems: ROS cannot be obtained secondary to pt's inabilty to answer questions. <Claire Blackwell - Last Filed: 12/13/16 22:44> Physical Exam - Reviewed Nursing Documentation Reviewed: Yes Vital Signs Reviewed: Yes - Physical Exam Appears: Positive for: Well, No Acute Distress (Sleepy, arousable to verbal stimuli) Head Exam: Positive for: ATRAUMATIC, NORMAL INSPECTION Skin: Positive for: Normal Color, Warm, Dry Eye Exam: Positive for: Normal appearance, EOMI, PERRL Cardiovascular/Chest: Positive for: Tachycardia. 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 Negative for: Alert (Sleeping), Facial Droop <Claire Blackwell - Last Filed: 12/13/16 22:44> - ECG O2 Sat by Pulse Oximetry: 92 <Claire Blackwell - Last Filed: 12/13/16 22:44> - Laboratory Results Result Diagrams: 12/13/16 23:46 12/13/16 23:46 <Horace Martínez - Last Filed: 12/14/16 00:28> Medical Decision Making Medical Decision Makin:40 Case discussed with Jade @ [facility] Control. Monitor for tachycardia, hypotension, dry mouth, QTc prolongation, seizure, agitations, [place] depression. Treat with IVF, benzo, King as indicated. Recommends repeat EKG in 4-6 hours. <Claire Blackwell - Last Filed: 12/13/16 22:44> Medical Decision Making: Time: 0000 Re-Evaluation: --Admitted medically for further treatment. Case discussed with Dr. Paty MD (admitting resident) who is aware of the plan and will admit the patient. Scribe Attestation: Documented by Katlyn Contreras, acting as a scribe for Horace Martínez MD. Scribe Attestation: All medical record entries made by the Scribe were at my direction and personally dictated by me. I have reviewed the chart and agree that the record accurately reflects my personal performance of the history, physical exam, medical decision making, and the department course for this patient. I have also personally directed, reviewed, and agree with the discharge instructions and disposition. <Horace Martínez - Last Filed: 12/14/16 00:28> Disposition - Patient ED Disposition Is Patient to be Admitted: Yes Discussed With : Francisco Newman <Horace Martínez - Last Filed: 12/14/16 00:28>
[2016-12-13 23:20] LABS: BARBITURATES, UR NEGATIVE (NEGATIVE); BENZODIAZEPINES, UR NEGATIVE (NEGATIVE); OPIATES, UR NEGATIVE (NEGATIVE); PHENCYCLIDINE, UR NEGATIVE (NEGATIVE)
[2016-12-13 23:50] LABS: BASO # 0.1 K/uL (0.0-0.2); BASO % 1.2 % (0.0-2.0); EOS # 0.2 K/uL (0.0-0.7); EOS % 4.2 % (0.0-4.0); HEMOGLOBIN 11.2 g/dL (12.0-18.0); LYMPH # 1.8 K/uL (1.0-4.3); LYMPH % 31.9 % (20.0-40.0); MEAN CORPUSCULAR HEMOGLOBIN 28.6 pg (27.0-31.0); MEAN CORPUSCULAR HGB CONC 32.5 g/dL (33.0-37.0); MONO # 0.5 K/uL (0.0-0.8); MONO % 9.4 % (0.0-10.0); NEUT % 53.3 % (50.0-75.0); NRBC % 0.1 % (0.0-0.0); RBC 3.91 Mil/uL (4.40-5.90); RED CELL DISTRIBUTION WIDTH 16.7 % (11.5-14.5); WHITE BLOOD COUNT 5.6 K/uL (4.8-10.8)
[2016-12-14 00:01] LABS: ALB/GLOB RATIO 1.3 (1.0-2.1); ALBUMIN 3.7 g/dL (3.5-5.0); ALT/SGPT 38 U/L (21-72); AST/SGOT 40 U/L (17-59); BLOOD UREA NITROGEN 14 mg/dl (9-20); CALCIUM 8.7 mg/dL (8.4-10.2); GFR AFRICAN-AMERICAN > 60; GFR NON-AFRICAN AMERICAN > 60; MAGNESIUM 2.1 MG/DL (1.6-2.3)
[2016-12-14 00:05] LABS: SALICYLATE < 1.0 mg/dl
[2016-12-14 00:09] LABS: VALPROIC ACID 42.8 ug/mL (50.0-100.0)
[2016-12-14 00:11] LABS: ACETAMINOPHEN < 10.0 ug/ml (10.0-30.0)
[2016-12-14 00:18] LABS: PROTHROMBIN TIME 11.4 Seconds (9.8-13.1)
[2016-12-14 00:19] LABS: INR 1.1 (0.9-1.2); PARTIAL THROMBOPLASTIN TIME 28.1 Seconds (25.6-37.1)
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
[2016-12-14] MEDS ORDERED: Albuterol HFA 90 mcg/actuation (8 g) IH PRN (01:58)
[2016-12-14] MEDS ORDERED: Multivitamin (MVI) 10 ML, Folic Acid 1 MG, Thiamine 100 MG in Dextrose 5%/0.45% NS 1,00... IV ONE ×2 (02:00→02:04)
--- NOTE | 2016-12-14 07:47 | CARD ---
APPROVED REPORT EKG Measurement Heart [id number] <Conclusion> Normal sinus rhythm Incomplete right bundle branch block Borderline ECG
[2016-12-14 07:56] LABS: ALB/GLOB RATIO 1.2 (1.0-2.1); ALBUMIN 3.4 g/dL (3.5-5.0); ALT/SGPT 36 U/L (21-72); AST/SGOT 40 U/L (17-59); BLOOD UREA NITROGEN 12 mg/dl (9-20); CALCIUM 8.3 mg/dL (8.4-10.2); GFR AFRICAN-AMERICAN > 60; GFR NON-AFRICAN AMERICAN > 60
[2016-12-14] MEDS: Fluticasone-Salmeterol 250-50mcg Diskus IH SCH ×2 (08:16→20:49)
--- NOTE | 2016-12-14 09:36 | CARD ---
APPROVED REPORT EKG Measurement Heart [id number] [place] 154P44 [id number] <Conclusion> Normal sinus rhythm Normal ECG
--- NOTE | 2016-12-14 09:38 | CARD ---
APPROVED REPORT EKG Measurement Heart [id number] [place] 148P50 [id number] <Conclusion> Normal sinus rhythm Normal ECG
--- NOTE | 2016-12-14 09:38 | CARD ---
APPROVED REPORT EKG Measurement Heart [id number] [place] [id number] <Conclusion> Normal sinus rhythm Incomplete right bundle branch block Borderline ECG
--- NOTE | 2016-12-14 11:16 | RAD ---
PROCEDURE: CHEST RADIOGRAPH, 1 VIEW HISTORY: OD COMPARISON: 10/26/2016 FINDINGS: LUNGS: Clear. PLEURA: No pneumothorax or pleural fluid seen. CARDIOVASCULAR: No radiographic findings to suggest acute or significant cardiovascular disease. OSSEOUS STRUCTURES: No significant abnormalities. VISUALIZED UPPER ABDOMEN: Normal. OTHER FINDINGS: None. IMPRESSION: No active disease. No acute/significant interval changes.
[2016-12-14] MEDS ORDERED: Sodium Chloride 0.9% 1,000 ML IV SCH (12:00)
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
--- NOTE | 2016-12-14 17:36 | CT ---
PROCEDURE: CT HEAD WITHOUT CONTRAST. HISTORY: Head trauma COMPARISON: 02/12/2015 TECHNIQUE: Axial computed tomography images were obtained through the head/brain without intravenous contrast. Radiation dose: Total exam DLP = 858 mGy-cm. This CT exam was performed using one or more of the following dose reduction techniques: Automated exposure control, adjustment of the mA and/or kV according to patient size, and/or use of iterative reconstruction technique. FINDINGS: HEMORRHAGE: No intracranial hemorrhage. BRAIN: No mass effect or edema. No atrophy or chronic microvascular ischemic changes. VENTRICLES: Unremarkable. No hydrocephalus. CALVARIUM: Unremarkable. PARANASAL SINUSES: Unremarkable as visualized. No significant inflammatory changes. MASTOID AIR CELLS: Unremarkable as visualized. No inflammatory changes. OTHER FINDINGS: None. IMPRESSION: Normal CT of the Head.
[2016-12-14] MEDS ORDERED: Divalproex 500 mg ER (ONCE DAILY formulation) PO SCH (22:00)
[2016-12-15] MEDS ORDERED: Multivitamin With Minerals Tab PO SCH (09:00)
[2016-12-15] MEDS ORDERED: Levothyroxine 75 MCG TAB PO SCH (09:00)
[2016-12-15] MEDS: Fluticasone-Salmeterol 250-50mcg Diskus IH SCH (09:23)
--- NOTE | 2016-12-15 09:33 | CP.PCM.DIS ---
Provider - Provider Date of Admission: 12/14/16 00:12 Attending physician: Maxine Kohli MD Time Spent in preparation of Discharge (in minutes): 30 Hospital Course - Lab Results Lab Results: Most Recent Lab Values WBC 5.6 K/uL (4.8-10.8) 12/13/16 23:46 RBC 3.91 Mil/uL (4.40-5.90) L 12/13/16 23:46 Hgb 11.2 g/dL (12.0-18.0) L 12/13/16 23:46 Hct 34.4 % (35.0-51.0) L 12/13/16 23:46 MCV 88.0 fl (80.0-94.0) D 12/13/16 23:46 MCH 28.6 pg (27.0-31.0) 12/13/16 23:46 MCHC 32.5 g/dL (33.0-37.0) L 12/13/16 23:46 RDW 16.7 % (11.5-14.5) H 12/13/16 23:46 Plt Count 231 K/uL (130-400) 12/13/16 23:46 MPV 7.0 fl (7.2-11.7) L 12/13/16 23:46 Neut % (Auto) 53.3 % (50.0-75.0) 12/13/16 23:46 Lymph % (Auto) 31.9 % (20.0-40.0) 12/13/16 23:46 Cocke % (Auto) 9.4 % (0.0-10.0) 12/13/16 23:46 Eos % (Auto) 4.2 % (0.0-4.0) H 12/13/16 23:46 Baso % (Auto) 1.2 % (0.0-2.0) 12/13/16 23:46 Neut # 3.0 K/uL (1.8-7.0) 12/13/16 23:46 Lymph # 1.8 K/uL (1.0-4.3) 12/13/16 23:46 Cocke # 0.5 K/uL (0.0-0.8) 12/13/16 23:46 Eos # 0.2 K/uL (0.0-0.7) 12/13/16 23:46 Baso # 0.1 K/uL (0.0-0.2) 12/13/16 23:46 PT 11.4 Seconds (9.8-13.1) 12/13/16 23:46 INR 1.1 (0.9-1.2) 12/13/16 23:46 APTT 28.1 Seconds (25.6-37.1) 12/13/16 23:46 Sodium 145 mmol/l (132-148) 12/14/16 07:15 Potassium 4.0 MMOL/L (3.6-5.0) 12/14/16 07:15 Chloride 111 mmol/L (98-107) H 12/14/16 07:15 Carbon Dioxide 23 mmol/L (22-30) 12/14/16 07:15 Anion Gap 15 (10-20) 12/14/16 07:15 BUN 12 mg/dl (9-20) 12/14/16 07:15 Creatinine 0.9 mg/dL (0.8-1.5) 12/14/16 07:15 Est GFR ( Amer) > 60 12/14/16 07:15 Est GFR (Non-Af Amer) > 60 12/14/16 07:15 POC Glucose (mg/dL) 99 mg/dL (65-110) 12/14/16 02:12 Random Glucose 81 mg/dL (75-110) 12/14/16 07:15 Calcium 8.3 mg/dL (8.4-10.2) L 12/14/16 07:15 Magnesium 2.1 MG/DL (1.6-2.3) 12/13/16 23:46 Total Bilirubin 0.1 mg/dl (0.2-1.3) L 12/14/16 07:15 AST 40 U/L (17-59) 12/14/16 07:15 ALT 36 U/L (21-72) 12/14/16 07:15 Alkaline Phosphatase 66 U/L (38-126) 12/14/16 07:15 Total Protein 6.2 G/DL (6.3-8.2) L 12/14/16 07:15 Albumin 3.4 g/dL (3.5-5.0) L 12/14/16 07:15 Globulin 2.8 gm/dL (2.2-3.9) 12/14/16 07:15 Albumin/Globulin Ratio 1.2 (1.0-2.1) 12/14/16 07:15 TSH 3rd Generation 2.58 mIU/ML (0.46-4.68) 12/14/16 07:15 Salicylates < 1.0 mg/dl 12/13/16 23:46 Urine Opiates Screen Negative (NEGATIVE) 12/13/16 23:01 Urine Methadone Screen Negative (NEGATIVE) 12/13/16 23:01 Acetaminophen < 10.0 ug/ml (10.0-30.0) L 12/13/16 23:46 Ur Barbiturates Screen Negative (NEGATIVE) 12/13/16 23:01 Valproic Acid 48.0 ug/mL (50.0-100.0) L 12/15/16 05:40 Ur Phencyclidine Scrn Negative (NEGATIVE) 12/13/16 23:01 Ur Amphetamines Screen Negative (NEGATIVE) 12/13/16 23:01 U Benzodiazepines Scrn Negative (NEGATIVE) 12/13/16 23:01 U Oth Cocaine Metabols Negative (NEGATIVE) 12/13/16 23:01 U Cannabinoids Screen Negative (NEGATIVE) 12/13/16 23:01 Alcohol, Quantitative 228 mg/dl (0-10) H 12/13/16 23:46 Hepatitis C Antibody Negative (NEGATIVE) 12/14/16 07:15 HIV-1 Ab Rapid Screen Non reactive (NON REAC) 12/14/16 07:15 - Hospital Course Hospital Course: 51 y.o. male admitted to [facility] after suicide attempt by ingesting unknown quantity of seroquel. Poison control was contacted and patient admitted to telemetry for monitoring of QT prolongation. Patient remained stable and seroquel levels trended downwards. Hospital stay uneventful and patient safely discharged to to Psych unit for management of suicide ideation. Discharge Exam - Head Exam Head Exam: ATRAUMATIC, NORMAL INSPECTION, NORMOCEPHALIC Discharge Plan - Follow Up Plan Condition: GUARDED Disposition: HOME/ ROUTINE Instructions: Depression (DC), Suicide Prevention for Adults (DC), Suicide Prevention for Adults (GEN) Additional Instructions: Discharge to PSYCH.
[2016-12-15 12:53] VITALS: RESP 20
--- NOTE | 2016-12-15 13:54 | PQF GENQUE ---
This form is a permanent part of the medical record 12/15/16 Dr. Kohli, Would you please clarify if there is an associated diagnosis to go along with the BMI of 41.2 or not. If yes please document the associated diagnosis and the BMI. EMR has the patient listed as 6'3" and weighing 330 pounds with a BMI of 41.2. Clarification of your documentation is requested to better reflect the severity of illness and intensity of treatment of your patient. Indicators present [] Specify: [] [] Specify: [] [] Specify: [] [] Specify: [] Location in the medical record that reflects the above clinical findings: [] Treatment Provided: [] PHYSICIAN'S RESPONSE Based on your medical judgment of the clinical indicators outlined above please clarify the following: [] Practitioner response [] If unable to determine, please check the box, sign and date. Present On Admission (POA) Indicator: [] Present at the time of admission [] Not present at the time of admission [] Clinically Undetermined In responding to this query, please exercise your independent professional judgment. The fact that a question is asked does not imply that any particular answer is desired or expected. Thank you for your clarification on this documentation. If you have any questions please call:[phone] * Thank you, Carin Wilde RN CD[facility]
[2016-12-15 16:14] VITALS: BP 121/79; PULSE 83; TEMP 97.9; O2SAT 99
== END 2016-12-15 18:00 | disposition home or self-care (01) | DRG 450 ==
LOC: H.ER 21:31 → H.EROBSV 21:42 → OBSVTOIN 12-14 00:12 → H.ERHOLD 12-14 00:13 → H.TEL 12-14 04:36
PROVIDERS: ADMIT Family Medicine Geriatric Medicine; ATTEND Family Medicine Geriatric Medicine
DX: T43.592A Poisoning by other antipsychotics and neuroleptics, intentional self-harm, initial encounter (principal); Z68.41 Body mass index [BMI] 40.0-44.9, adult; I10 Essential (primary) hypertension; E66.01 Morbid (severe) obesity due to excess calories; F31.60 Bipolar disorder, current episode mixed, unspecified; J45.909 Unspecified asthma, uncomplicated; T51.0X2A Toxic effect of ethanol, intentional self-harm, initial encounter; R68.2 Dry mouth, unspecified; R53.83 Other fatigue; E03.9 Hypothyroidism, unspecified; Z91.5 Personal history of self-harm; Y90.7 Blood alcohol level of 200-239 mg/100 ml; F10.229 Alcohol dependence with intoxication, unspecified; F60.3 Borderline personality disorder; F17.210 Nicotine dependence, cigarettes, uncomplicated; Z98.84 Bariatric surgery status; F43.10 Post-traumatic stress disorder, unspecified; Z59.0 Homelessness; Z79.899 Other long term (current) drug therapy

== ENCOUNTER 2016-12-15 14:35 | Inpatient (IN) | payer MEDICAID ==
[2016-12-15 18:15] VITALS: BMI 41.2
[2016-12-15] MEDS ORDERED: DiphenhydrAMINE 50 mg/ml Inj IM PRN (18:23)
[2016-12-15] MEDS ORDERED: Magnesium Hydroxide Susp 30 ml UD PO PRN (18:23)
[2016-12-15] MEDS ORDERED: Alum-Mag Hydrox-Simethicone Susp (30 mL) PO PRN (18:23)
[2016-12-15] MEDS ORDERED: Albuterol HFA 90 mcg/actuation (8 g) IH PRN (19:14)
[2016-12-15] MEDS: Fluticasone-Salmeterol 250-50mcg Diskus IH SCH (21:57)
[2016-12-15] MEDS: Divalproex 500 mg ER (ONCE DAILY formulation) PO SCH (22:46)
--- NOTE | 2016-12-16 00:41 | PCM.BM ---
<Victor ManuelNitza Ivis - Last Filed: 12/16/16 00:56> Treatment Plan Problems - Problems identified on initial assessmt feeling of worthlessness Date Initiated: 12/15/16 Time Initiated: 20:30 Assessment reference: NA Status: Active hopelessness/helplessness Date Initiated: 12/15/16 Time Initiated: 20:30 Assessment reference: NA Status: Active suicidal ideation Date Initiated: 12/15/16 Time Initiated: 20:00 Assessment reference: NA Status: Active Treatment assets and liabiliti Patient Assests: cooperative, self-reliant, strong denys Patient Liabilities: financial problems, poor support system - Milieu Protocol Maintain good personal hygiene: daily Encourage regular showers, daily Remind patient to perform daily oral care Maintain personal safety: every shift Educate patient to report safety concerns to staff, every shift Monitor environment for contraband/sharps Medication safety: Monitor for expected outcome, potential side effects: every shift, Assess barriers to learning: every shift, Assess readiness for medication education: every shift Family Contact Family involvement: Famliy/SO not involved Discharge/Continuing Care - Education Needs Education Needs: Patient Medication, Patient Diagnosis/Disease Process, Patient Coping Skills, Patient Anger Management skills, Patient Personal Hygiene/ Grooming - Discharge Discharge Criteria: Tolerates medication w/o severe side effects, Free of Suicidal thoughts <Stephon Mohan - Last Filed: 12/16/16 16:45> Family Contact - Outside Agency [facility] Out[facility] Care involvment: Information-sharing Agency contact number: [phone] - Goals for Treatment Patient goals for treatment: Pt expressed that he would like to be placed on medication that will better stabilize his mood. Pt verbalized that he often acts impulsively and reactively when not treated in a way that he wants. Pt showed remorse for his latest suicide attempt. Discharge/Continuing Care - Education Needs Education Needs: Patient Medication, Patient Diagnosis/Disease Process, Patient Coping Skills, Patient Anger Management skills, Patient Personal Hygiene/ Grooming - Discharge Discharge to:: Assisted ([facility]) - Treatment Team Participation Was Patient/Family/SO present at Treatment Team Meeting: Yes (Pt was present in treatment team.)
[2016-12-16] MEDS: Levothyroxine 75 MCG TAB PO SCH (06:15)
[2016-12-16 08:21] LABS: T4 6.65 ug/dl (5.5-11.0)
[2016-12-16] MEDS ORDERED: Pneumococcal 23-Valent Vaccine IM ONE (09:00)
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
[2016-12-16] MEDS: Multivitamin With Minerals Tab PO SCH (10:13)
[2016-12-16] MEDS: Fluticasone-Salmeterol 250-50mcg Diskus IH SCH ×2 (10:16→21:02)
[2016-12-16] MEDS: Divalproex 500 mg ER (ONCE DAILY formulation) PO SCH (21:01)
[2016-12-17] MEDS: Levothyroxine 75 MCG TAB PO SCH (05:41)
[2016-12-17] MEDS: Multivitamin With Minerals Tab PO SCH (08:56)
[2016-12-17] MEDS: Fluticasone-Salmeterol 250-50mcg Diskus IH SCH (08:58)
[2016-12-17 09:50] VITALS: BP 160/92; PULSE 100; RESP 20; TEMP 97.2
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
--- NOTE | 2016-12-17 11:12 | PCM.PYCHDC ---
Mental Status Examination - Mental Status Examination Orientation: Person, Place, Situation, Time Memory: Intact Mood: Neutral Affect: Broad Speech: Appropriate Attention: WNL Concentration: WNL Association: WNL Fund of Knowledge: WNL Formal Thought Process: No Impairment Description of patient's judgement and insight: fair Psychotic Thoughts and Behaviors: denies a/v hallucinations Suicidal Ideation: No Current Homicidal Ideation?: No Plan: denies suicidal or homicidal thoughts/plans or intent Discharge Summary - Discharge Note Reason for Hospitalization: transfered after an overdose Psychiatric History (includes Medical, Family, Personal Hx): multiple admissions /history of bipoloar disorder Laboratory Data: Abnormal Lab Results 12/15/16 12/16/16 12/16/16 23:40 07:36 07:36 Hemoglobin A1c 5.7 LDL Cholesterol Direct 55 RPR Nonreactive Consultations:: List each consultation separately and include: 1. Reason for request. 2. Findings. 3. Follow-up Consultations: followed by clinical specialist medical device Summary of Hospital Course include:: 1. Description of specific treatment plan utilized for patients during their course of treatmen. 2. Summarize the time- course for resolution of acute symptoms and/or regressed behaviors. 3. Describe issues identified and worked on during hospitalization. 4. Describe medication utilized. 5. Describe medical problems identified and treated. 6. Reassessment of suicide risk Summary of Hospital Course: last entry from 12/16/16 pt tranfered from medical floor after an overdose following a conflict with family of his "girlfriend" pt took an overdose of seroquel and depakote. he has history of overdosing in the past. he states he was upset because the girlfriends son did not want him to see the girlfriend. pt texted friends to report that he overdosed. he states he has otherwise been doing well and is attending treatment at [facility] out[facility]. he goes to a program at [facility] to help stay sober. he denies that he wants to kill himself now and has signed a 48 hour notice. hospital course pt was admitted to the unit. placed on routine safety protocols. seen by the treatment team. encouraged to retract the 48 hour notice. educated the pt about borderline personality disorder and encouraged pt to follow up with therapy. pt denied that he had any thoughts to harm himself now and that he would reach out to friends if he felt suicidal. he was aware that he could not see the girlfriend. we discussed AMA discharge and that the pt would not be prescribed medications at the time of discharge as this bond underwriter felt the pt may be at risk to OD again and to avoid f/u with his outpt providers if given medications. we discussed the risk of leaving which included self harm, lack of treatment, suicide attempt. benefits of staying included finding a safe medication to help with his impulse control, arranging appropriate aftercare and safety from self harm. the pt agreed to leave against medical advice, but left without signing the papers. - Final Diagnosis (DSM 5) Condition upon Discharge: GOOD DSM 5: borderline personality disorder alcohol dependence Disposition: AGAINST MEDICAL ADVICE Follow-up Treatment Plan: pt discharged against medical advice no prescriptions provided as pt uses medications to harm self and is leaving AMA he will f/u with his outpatient providers at time of discharge he was denying any suicidal or homicidal thoughts. - Smoking Cessation Smoking Cessation Medication prescribed: No - Antipsychotic Medications Pt discharged on 2 or more routine antipsychotic medications: No
== END 2016-12-17 10:30 | disposition left against medical advice (07) | DRG 449 ==
LOC: H.PSYCH 18:16
PROVIDERS: ADMIT Psychiatry & Neurology Psychiatry; ATTEND Psychiatry & Neurology Psychiatry
DX: T43.592A Poisoning by other antipsychotics and neuroleptics, intentional self-harm, initial encounter (principal); F20.9 Schizophrenia, unspecified; Z68.41 Body mass index [BMI] 40.0-44.9, adult; I10 Essential (primary) hypertension; F31.9 Bipolar disorder, unspecified; F60.3 Borderline personality disorder; F10.20 Alcohol dependence, uncomplicated; J45.909 Unspecified asthma, uncomplicated; F43.10 Post-traumatic stress disorder, unspecified; E03.9 Hypothyroidism, unspecified; E66.9 Obesity, unspecified